=== PATIENT | male | born 1965 | race Asian ===

== ENCOUNTER 2016-08-24 01:05 | Emergency (ER) | payer OTHER ==
[~2016-08-24] VITALS: Ht 152.4 cm; Wt 54.9 kg
[2016-08-24 01:18] VITALS: BP 100/62
[2016-08-24 05:34] VITALS: BP 114/72
== END 2016-08-24 05:34 | disposition home or self-care (01) ==
LOC: MED 01:05
DX: R10.84 Generalized abdominal pain (principal); R11.2 Nausea with vomiting, unspecified
CPT/HCPCS: 74000; 99283; Q0092